=== PATIENT | female | born 1995 | race Caucasian/White ===

== ENCOUNTER 2016-05-18 02:38 | Emergency (ER) | payer BC ==
--- NOTE | 2016-05-18 03:05 | ED ---
Nausea/Vomiting/Diarrhea HPI - General Chief complaint: Nausea/Vomiting/Diarrhea Stated complaint: light headed Time Seen by Provider: 05/18/16 02:50 Source: patient, RN notes reviewed Mode of arrival: ambulatory Limitations: no limitations - History of Present Illness Initial comments: Patient is a 21-year-old female presents to the emergency room for evaluation of nausea, vomiting and lightheadedness. Patient states while she was at work today she began feeling very nauseous and vomited. Patient states that she's been very lightheaded after vomiting. Patient states she thinks she is dehydrated. Patient denies any significant abdominal pain. Patient denies headache. Patient denies ear pain or ringing in the ears. Patient denies throat pain. Patient denies constipation or diarrhea. Patient denies any fevers or chills. Patient denies trying new foods. Patient denies recent travel outside the country. Patient states she can't keep any food down. Patient states she's feeling very nauseous. Patient states she is on control but could possibly be . Patient denies any pain or burning during urination, trouble urinating or blood in urine. - Related Data Previous Rx's Medication Instructions Recorded Ondansetron Odt [Zofran Odt] 4 mg PO Q8HR PRN #12 tab 05/18/16 Allergies Allergy/AdvReac Type Severity Reaction Status Date / Time Penicillins Allergy Rash/Hives Verified 03/01/16 15:11 Review of Systems ROS Statement: Those systems with pertinent positive or pertinent negative responses have been documented in the HPI. ROS Other: All systems not noted in ROS Statement are negative. Past Medical History Past Medical History: No Reported History History of Any Multi-Drug Resistant Organisms: None Reported Past Surgical History: Section Past Psychological History: No Psychological Hx Reported Smoking Status: Current every day smoker Past Alcohol Use History: Occasional Past Drug Use History: None Reported General Exam - General Exam Comments Initial Comments: Laying in exam room, no acute distress. Limitations: no limitations General appearance: alert, in no apparent distress Head exam: Present: atraumatic, normocephalic, normal inspection Eye exam: Present: normal appearance ENT exam: Present: normal exam Neck exam: Present: normal inspection Respiratory exam: Present: normal lung sounds bilaterally. Absent: respiratory distress Cardiovascular Exam: Present: normal rhythm, tachycardia, normal heart sounds GI/Abdominal exam: Present: soft, normal bowel sounds. Absent: distended, tenderness, guarding, rebound, rigid Extremities exam: Present: normal inspection Back exam: Present: normal inspection Neurological exam: Present: alert, oriented X3, CN II-XII intact, normal gait Psychiatric exam: Present: normal affect, normal mood Skin exam: Present: warm, dry, intact, normal color. Absent: rash Course Vital Signs 05/18/16 05/18/16 02:44 04:17 Temperature 98.7 F 98.1 F Pulse Rate 114 H 68 Respiratory 20 18 Rate Blood Pressure 129/77 93/51 O2 Sat by Pulse 97 100 Oximetry Medical Decision Making - Medical Decision Making Patient is a 21-year-old female presents to the emergency room for evaluation of nausea, vomiting and lightheadedness. Patient states she is feeling better after fluids and Zofran given. Labs show no significant findings. WBC within normal limits. Urine contaminated. Patient denies any problems with urination or vaginal discomfort. Urine will be cultured. Patient states she understands everything that was discussed with her. Return parameters discussed. Case discussed with Dr. Welch. - Lab Data Result diagrams: 05/18/16 03:15 05/18/16 03:15 Lab Results 05/18/16 05/18/16 05/18/16 Range/Units 03:15 03:15 03:30 WBC 10.5 (3.8-10.6) k/uL RBC 4.65 (3.80-5.40) m/uL Hgb 14.2 (11.4-16.0) gm/dL Hct 41.3 (34.0-46.0) % MCV 88.8 (80.0-100.0) fL MCH 30.5 (25.0-35.0) pg MCHC 34.3 (31.0-37.0) g/dL RDW 12.9 (11.5-15.5) % Plt Count 284 (150-450) k/uL Neutrophils % 84 % Lymphocytes % 10 % Monocytes % 5 % Eosinophils % 1 % Basophils % 0 % Neutrophils # 8.8 H (1.3-7.7) k/uL Lymphocytes # 1.0 (1.0-4.8) k/uL Monocytes # 0.5 (0-1.0) k/uL Eosinophils # 0.1 (0-0.7) k/uL Basophils # 0.0 (0-0.2) k/uL Sodium 140 (137-145) mmol/L Potassium 3.6 (3.5-5.1) mmol/L Chloride 106 (98-107) mmol/L Carbon Dioxide 23 (22-30) mmol/L Anion Gap 11 mmol/L BUN 13 (7-17) mg/dL Creatinine 0.60 (0.52-1.04) mg/dL Est GFR (MDRD) Af Amer >60 (>60 ml/min/1.73 sqM) Est GFR (MDRD) Non-Af >60 (>60 ml/min/1.73 sqM) Glucose 106 H (74-99) mg/dL Calcium 9.3 (8.4-10.2) mg/dL Total Bilirubin 0.9 (0.2-1.3) mg/dL AST 19 (14-36) U/L ALT 30 (9-52) U/L Alkaline Phosphatase 50 (38-126) U/L Total Protein 7.0 (6.3-8.2) g/dL Albumin 4.4 (3.5-5.0) g/dL Urine Color Urine Appearance (Clear) Urine pH (5.0-8.0) Ur Specific [place] (1.001-1.035) Urine Protein (Negative) Urine Glucose (UA) (Negative) Urine Ketones (Negative) Urine Blood (Negative) Urine Nitrate (Negative) Urine Bilirubin (Negative) Urine Urobilinogen (<2.0) mg/dL Ur Leukocyte Esterase (Negative) Urine RBC (0-5) /hpf Urine WBC (0-5) /hpf Ur Squamous Epith Cells (0-4) /hpf Urine Bacteria (None) /hpf Urine Mucus (None) /hpf Urine HCG, Qual Not Detected (Not Detectd) 05/18/16 Range/Units 03:30 WBC (3.8-10.6) k/uL RBC (3.80-5.40) m/uL Hgb (11.4-16.0) gm/dL Hct (34.0-46.0) % MCV (80.0-100.0) fL MCH (25.0-35.0) pg MCHC (31.0-37.0) g/dL RDW (11.5-15.5) % Plt Count (150-450) k/uL Neutrophils % % Lymphocytes % % Monocytes % % Eosinophils % % Basophils % % Neutrophils # (1.3-7.7) k/uL Lymphocytes # (1.0-4.8) k/uL Monocytes # (0-1.0) k/uL Eosinophils # (0-0.7) k/uL Basophils # (0-0.2) k/uL Sodium (137-145) mmol/L Potassium (3.5-5.1) mmol/L Chloride (98-107) mmol/L Carbon Dioxide (22-30) mmol/L Anion Gap mmol/L BUN (7-17) mg/dL Creatinine (0.52-1.04) mg/dL Est GFR (MDRD) Af Amer (>60 ml/min/1.73 sqM) Est GFR (MDRD) Non-Af (>60 ml/min/1.73 sqM) Glucose (74-99) mg/dL Calcium (8.4-10.2) mg/dL Total Bilirubin (0.2-1.3) mg/dL AST (14-36) U/L ALT (9-52) U/L Alkaline Phosphatase (38-126) U/L Total Protein (6.3-8.2) g/dL Albumin (3.5-5.0) g/dL Urine Color Yellow Urine Appearance Cloudy H (Clear) Urine pH 5.5 (5.0-8.0) Ur Specific [place] 1.023 (1.001-1.035) Urine Protein Trace H (Negative) Urine Glucose (UA) Negative (Negative) Urine Ketones Negative (Negative) Urine Blood Moderate H (Negative) Urine Nitrate Negative (Negative) Urine Bilirubin Negative (Negative) Urine Urobilinogen <2.0 (<2.0) mg/dL Ur Leukocyte Esterase Trace H (Negative) Urine RBC 53 H (0-5) /hpf Urine WBC 21 H (0-5) /hpf Ur Squamous Epith Cells 51 H (0-4) /hpf Urine Bacteria Moderate H (None) /hpf Urine Mucus Rare H (None) /hpf Urine HCG, Qual (Not Detectd) Disposition Clinical Impression: Nausea and vomiting Disposition: HOME SELF-CARE Condition: Good Instructions: Acute Nausea and Vomiting (ED) Additional Instructions: Drink plenty of fluids. Take Zofran as needed for nausea. Please follow up with primary care provider in 1-2 days. If any new symptom arises or symptoms worsen, return to ER as soon as possible. Prescriptions: Ondansetron Odt [Zofran Odt] 4 mg PO Q8HR PRN #12 tab PRN Reason: Nausea Referrals: Shannon Gonzalez MD [Primary Care Provider] - 1-2 days Time of Disposition: 04:03
[2016-05-18] MEDS: ONDANSETRON 4 MG/2 ML VIAL IVP STA (03:17)
[2016-05-18] MEDS: SODIUM CHLORIDE 0.9% 1,000 ML IV ONE (03:19)
[2016-05-18 03:21] LABS: Basophils % (A) 0 %; CH 30.1; CHCM 34.1; Eosinophils # (A) 0.1 k/uL (0-0.7); Eosinophils % (A) 1 %; HCT 41.3 % (34.0-46.0); HDW 2.28; HGB 14.2 gm/dL (11.4-16.0); Luc # (Auto) 0.09; Luc % (Auto) 1; Lymphocytes % (A) 10 %; MCH 30.5 pg (25.0-35.0); MCHC 34.3 g/dL (31.0-37.0); MCV 88.8 fL (80.0-100.0); Mean Platelet Volume 7.5; Monocytes # (A) 0.5 k/uL (0-1.0); Monocytes % (A) 5 %; Neutrophils # (A) 8.8 k/uL (1.3-7.7); Neutrophils % (A) 84 %; RBC 4.65 m/uL (3.80-5.40); RDW 12.9 % (11.5-15.5); WBC 10.5 k/uL (3.8-10.6); WBC (Perox) 10.65
[2016-05-18 03:29] LABS: ALT 30 U/L (9-52); AST 19 U/L (14-36); Alkaline Phosphatase 50 U/L (38-126); Anion Gap 11 mmol/L; Blood Urea Nitrogen 13 mg/dL (7-17); Calcium 9.3 mg/dL (8.4-10.2); Carbon Dioxide 23 mmol/L (22-30); Chloride 106 mmol/L (98-107); Glucose 106 mg/dL (74-99); Non-African American GFR(MDRD) >60 (>60 ml/min/1.73 sqM); Potassium 3.6 mmol/L (3.5-5.1); Sodium 140 mmol/L (137-145); Total Bilirubin 0.9 mg/dL (0.2-1.3)
[2016-05-18 03:41] LABS: Appearance,Urine Cloudy (Clear); Bacteria,Urine Moderate /hpf; Bilirubin,Urine Negative (Negative); Glucose,Urine (UA) Negative (Negative); Ketones,Urine Negative (Negative); Leukocyte Esterase,Urine Trace (Negative); Mucus,Urine Rare /hpf; Nitrite,Urine Negative (Negative); PH, Urine 5.5 (5.0-8.0); Particle Count 16586; Protein,Urine Trace (Negative); RBC,Urine 53 /hpf (0-5); Specific Gravity,Urine 1.023 (1.001-1.035); Squamous Epithelial Cell,Urine 51 /hpf (0-4); UA Billing (MACRO vs. MICRO) MICRO; Urobilinogen,Urine <2.0 mg/dL (<2.0); WBC,Urine 21 /hpf (0-5)
[2016-05-18 04:18] VITALS: BP 93/51; PULSE 68; RESP 18; TEMP 98.1
== END 2016-05-18 04:19 | disposition home or self-care (01) ==
LOC: EC 02:38
DX: R11.2 Nausea with vomiting, unspecified (principal); R42 Dizziness and giddiness; F17.200 Nicotine dependence, unspecified, uncomplicated; Z88.0 Allergy status to penicillin
CPT/HCPCS: 36415; 93005; 80053; 85025; 81001; 81025; 87086; 99284; 96374; 96361; J2405

== ENCOUNTER 2016-08-06 14:32 | Emergency (ER) | payer BC, OTHER ==
[2016-08-06] MEDS ORDERED: IBUPROFEN 800 MG TAB PO STA (14:44)
[2016-08-06] MEDS ORDERED: AZITHROMYCIN 500 MG TAB PO STA (14:57)
--- NOTE | 2016-08-06 15:01 | ED ---
Animal Bite HPI - General Chief Complaint: Animal Bite Stated Complaint: Dog Bite Time Seen by Provider: 08/06/16 14:38 Source: patient Mode of arrival: ambulatory Limitations: no limitations - History of Present Illness Initial Comments: Patient is a 21-year-old left-handed female presenting to the emergency department with complaints of dog bite to left forearm. Patient states she was entering her girlfriends house when her girlfriends dog attacked her and bit her arm. Complaint: animal bite Onset/Timin -: minutes(s) Right: Forearm (1 cm puncture wound to ulnar proximal forearm. 2 cm puncture wound to radial proximal forearm.) Animal: dog Description: household pet, immunizations UTD, appeared well Mechanism: bite Pain Description: sharp, constant Severity scale (1-10): 8 Context: unprovoked Associated Symptoms: erythema Treatments Prior to Arrival: pressure - Related Data Patient Tetanus UTD: Yes Previous Rx's Medication Instructions Recorded Azithromycin [Zithromax] 500 mg PO DAILY #4 tab 08/06/16 Allergies Allergy/AdvReac Type Severity Reaction Status Date / Time Penicillins Allergy Rash/Hives Verified 08/06/16 14:36 Review of Systems ROS Statement: Those systems with pertinent positive or pertinent negative responses have been documented in the HPI. ROS Other: All systems not noted in ROS Statement are negative. Past Medical History Past Medical History: No Reported History History of Any Multi-Drug Resistant Organisms: None Reported Past Surgical History: Section Past Psychological History: No Psychological Hx Reported Smoking Status: Current every day smoker Past Alcohol Use History: Occasional Past Drug Use History: None Reported General Exam Limitations: no limitations General appearance: alert, anxious Head exam: Present: atraumatic, normocephalic, normal inspection Eye exam: Present: normal appearance Neck exam: Present: normal inspection Respiratory exam: Present: normal lung sounds bilaterally. Absent: respiratory distress, wheezes, rales, rhonchi, stridor Cardiovascular Exam: Present: regular rate, normal rhythm, normal heart sounds. Absent: systolic murmur, diastolic murmur, rubs, gallop, clicks GI/Abdominal exam: Present: soft, normal bowel sounds. Absent: distended, tenderness, guarding, rebound, rigid Right Elbow exam: Present: normal inspection, full ROM. Absent: tenderness, swelling Forearm Wrist exam: Present: tenderness, swelling, erythema Hand Wrist exam: Present: normal inspection. Absent: full ROM, tenderness Neuro motor exam: Present: wrist extension intact, thumb opposition intact, thumb IP flexion intact, thumb adduction intact, fingers 2-5 abduction intact Neurosensory exam: Present: 2-point discrimination, radial nerve intact, ulnar nerve intact, median nerve intact Vascular: Present: normal capillary refill, radial pulse, brachial pulse, ulnar pulse. Absent: vascular compromise Neurological exam: Present: alert, oriented X3, normal gait, other (No focal deficits noted) Psychiatric exam: Present: normal affect, normal mood Skin exam: Present: warm, dry, normal color Course Vital Signs 08/06/16 14:34 Temperature 97.8 F Pulse Rate 132 H Respiratory 22 Rate Blood Pressure 158/80 O2 Sat by Pulse 97 Oximetry Procedures - Laceration Laceration #1 Consent Obtained: verbal consent Indication: laceration Site: upper extremity (Right forearm) Size (cm): 2 Description: linear Depth: simple, single layer Anesthetic Used: lidocaine 1% Anesthesia Technique: local infiltration Amount (mls): 1 Pre-repair: wound explored, irrigated extensively, deep structures intact Size of Sutures: 5-0 Number of Sutures: 2 Technique: simple, interrupted Patient Tolerated Procedure: well, no complications Laceration #2 Consent Obtained: verbal consent Indication: laceration Site: upper extremity (Right radial forearm) Size (cm): 1 Description: irregular Anesthetic Used: lidocaine 1% Anesthesia Technique: local infiltration Amount (mls): 1 Pre-repair: wound explored, irrigated extensively, deep structures intact Type of Sutures: nylon Size of Sutures: 5-0 Number of Sutures: 1 Technique: simple, interrupted Patient Tolerated Procedure: well, no complications Medical Decision Making - Medical Decision Making Dog bite to right forearm. X-ray of right forearm negative for fracture or foreign body. Puncture wounds sutured loosely. Patient placed on Zithromax for 5 days and pain medicine. Patient instructed to follow-up for wound care check in 24-48 hours. Patient instructed to return to the emergency department with new worsening symptoms. Patient instructed to return for suture removal in 7-10 days, sooner if signs of infection. Patient agrees with treatment plan. Discharge instructions and return parameters reviewed. Disposition Clinical Impression: Dog bite, Laceration of right forearm without complication Disposition: HOME SELF-CARE Condition: Good Instructions: Animal Bite (ED), Care For Your Stitches (ED), Laceration (ED) Additional Instructions: Finish antibiotics as prescribed. Continue Motrin for pain as needed. Follow- up with primary care physician in 24-48 hours to evaluate wound. Please return to the emergency department with new or worsening symptoms. Please return to the emergency room in 7-10 days to have sutures removed. Please watch for any signs of infection which may include increased pain, swelling, redness, fever or chills. Please return to emergency room for any signs of infection do occur. Please use clean soap and water over the area to prevent scabbing over your stitches. Please leave wound covered for the first 24 hours and then leave wound open to air. Please return to the emergency room for any other concerns. Prescriptions: Azithromycin [Zithromax] 500 mg PO DAILY #4 tab Referrals: Shannon Gonzalez MD [Primary Care Provider] - 1-2 days Joseph Stuart PAC [PHYSICIAN [employer]] - 1-2 days (Follow-up as needed) Time of Disposition: 15:31
--- NOTE | 2016-08-06 15:11 | XR ---
Right forearm HISTORY: Pain, dog bite 2 views of the right forearm There is lucency in the soft tissues compatible with penetrating trauma. No radiopaque foreign body. Bone mineralization, joint spaces and alignment are maintained. There is soft tissue swelling. No per iostitis to suggest osteomyelitis. IMPRESSION: Soft tissue infection, correlate for cellulitis, myositis, follow-up as indicated
[2016-08-06 15:53] VITALS: BP 120/70; PULSE 104; RESP 16; TEMP 98.4
== END 2016-08-06 15:52 | disposition home or self-care (01) ==
LOC: EC 14:32
DX: S51.851A Open bite of right forearm, initial encounter (principal); F17.200 Nicotine dependence, unspecified, uncomplicated; Z88.0 Allergy status to penicillin; W54.0XXA Bitten by dog, initial encounter; Y92.009 Unspecified place in unspecified non-institutional (private) residence as the place of occurrence of the external cause
CPT/HCPCS: 12002; 99283

== ENCOUNTER 2020-12-21 01:47 | Emergency (ER) | payer OTHER ==
[2020-12-21 01:55] VITALS: BP 134/94; PULSE 90; RESP 19; TEMP 98.3
[2020-12-21] MEDS ORDERED: ACETAMINOPHEN TAB 500 MG TAB PO STA (02:13)
[2020-12-21] MEDS ORDERED: predniSONE 20 MG TAB PO STA (02:13)
[2020-12-21] MEDS ORDERED: KETOROLAC 15 MG/ML 1 ML VIAL IM STA (02:13)
--- NOTE | 2020-12-21 02:30 | XR ---
EXAMINATION TYPE: XR chest 1V DATE OF EXAM: 12/21/2020 COMPARISON: 09/06/2013 HISTORY: Chest pain TECHNIQUE: Single view FINDINGS: Heart and mediastinum are normal. Lungs are clear. Diaphragm is normal. Bony thorax is inta ct. IMPRESSION: Normal chest. No change.
--- NOTE | 2020-12-21 02:31 | XR ---
EXAMINATION TYPE: XR shoulder limited LT DATE OF EXAM: 12/21/2020 COMPARISON: NONE HISTORY: Older pain TECHNIQUE: 2 views FINDINGS: I see no fracture nor dislocation. Joint spaces are normal. There are no pathologic calcifi cations. IMPRESSION: Negative left shoulder exam.
--- NOTE | 2020-12-21 02:37 | ED ---
Upper Extremity HPI - General Chief Complaint: Extremity Injury, Upper Stated Complaint: LT shoulder pain Time Seen by Provider: 12/21/20 01:48 Source: patient, RN notes reviewed, old records reviewed Mode of arrival: ambulatory Limitations: no limitations - History of Present Illness Initial Comments: This is a 25-year-old female to the emergency currently. Patient presents today for evaluation regards to left shoulder pain and left upper extremity pain. Pain down left arm. This occurred during sexual course tonight. Patient was doing later Mr. Hazel intercourse without any other significant injury or issue. Patient has no headache chest pain shortness breath or abdominal pain. Patient is worse with movement of left arm MD Complaint: Injury to:: left, shoulder, arm, elbow, forearm, wrist -: hour(s) Other Extremity Injury: Fingers: Left, Hand: Left, Wrist: Left, Elbow: Left, Arm: Left, Shoulder: Left, Forearm: Left Other Injuries: none Handedness: right Place: home Severity scale (1-10): 4 Improves With: none Worsens With: none Context: other (Occurred during sexual intercourse) Associated Symptoms: weakness, numbness Treatments Prior to Arrival: other (none) - Related Data Previous Rx's Medication Instructions Recorded Azithromycin [Zithromax] 500 mg PO DAILY #4 tab 08/06/16 Allergies Allergy/AdvReac Type Severity Reaction Status Date / Time Penicillins Allergy Rash/Hives Verified 12/21/20 01:55 Review of Systems ROS Statement: Those systems with pertinent positive or pertinent negative responses have been documented in the HPI. ROS Other: All systems not noted in ROS Statement are negative. Past Medical History Past Medical History: No Reported History History of Any Multi-Drug Resistant Organisms: None Reported Past Surgical History: Section Past Psychological History: No Psychological Hx Reported Smoking Status: Never smoker Past Alcohol Use History: Occasional Past Drug Use History: None Reported General Exam - General Exam Comments Initial Comments: Decreased range of motion secondary to pain. Patient does have neuropathic pain and tenderness General appearance: alert, in no apparent distress Head exam: Present: atraumatic, normocephalic, normal inspection Eye exam: Present: normal appearance, PERRL, EOMI. Absent: scleral icterus, conjunctival injection, periorbital swelling ENT exam: Present: normal exam, mucous membranes moist Neck exam: Present: normal inspection. Absent: tenderness, meningismus, lymphadenopathy Respiratory exam: Present: normal lung sounds bilaterally. Absent: respiratory distress, wheezes, rales, rhonchi, stridor Cardiovascular Exam: Present: regular rate, normal rhythm, normal heart sounds. Absent: systolic murmur, diastolic murmur, rubs, gallop, clicks GI/Abdominal exam: Present: soft, normal bowel sounds. Absent: distended, tenderness, guarding, rebound, rigid Extremities exam: Present: normal inspection, full ROM, normal capillary refill. Absent: tenderness, pedal edema, joint swelling, calf tenderness Back exam: Present: normal inspection Neurological exam: Present: alert, oriented X3, CN II-XII intact Psychiatric exam: Present: normal affect, normal mood Skin exam: Present: warm, dry, intact, normal color. Absent: rash Course Vital Signs 12/21/20 01:51 Temperature 98.3 F Pulse Rate 90 Respiratory 19 Rate Blood Pressure 134/94 O2 Sat by Pulse 98 Oximetry - Reevaluation(s) Reevaluation #1: 12/21/20 02:46 Medical record is reviewed Reevaluation #2: 12/21/20 02:46 Patient symptoms are improved Reevaluation #3: 12/21/20 02:46 Patient informed results and questions answered Medical Decision Making - Medical Decision Making 25 female left upper extremity paresthesia or nerve injury. Symptoms will improve over the next few days encouraged anti-inflammatories and patient can be discharged home - Radiology Data Radiology results: report reviewed (X-ray left shoulder and chest is negative for acute disease), image reviewed Disposition Clinical Impression: Arm paresthesia, left, Strain of shoulder Disposition: HOME SELF-CARE Condition: Good Instructions (If sedation given, give patient instructions): Paresthesia (ED) Is patient prescribed a controlled substance at d/c from ED?: No Referrals: Shannon Gonzalez MD [Primary Care Provider] - 1-2 days
== END 2020-12-21 03:17 | disposition home or self-care (01) ==
LOC: EC 01:47
DX: S46.912A Strain of unspecified muscle, fascia and tendon at shoulder and upper arm level, left arm, initial encounter (principal); R20.2 Paresthesia of skin; Z88.0 Allergy status to penicillin; X50.0XXA Overexertion from strenuous movement or load, initial encounter; Y93.89 Activity, other specified; Y92.009 Unspecified place in unspecified non-institutional (private) residence as the place of occurrence of the external cause
CPT/HCPCS: 73020; 71045; 99284; 96372; J1885; J7512

== ENCOUNTER 2022-04-01 09:05 | Emergency (ER) | payer OTHER ==
[2022-04-01 09:16] VITALS: TEMP 98.5
[2022-04-01] MEDS ORDERED: PANTOPRAZOLE 40 MG/10 ML VIAL IVP STA (09:29)
[2022-04-01] MEDS ORDERED: DICYCLOMINE 10 MG CAP PO STA (09:29)
[2022-04-01] MEDS ORDERED: SODIUM CHLORIDE 0.9% 1,000 ML IV STA (09:29)
--- NOTE | 2022-04-01 09:33 | ED ---
Abdominal Pain HPI - General Chief Complaint: Abdominal Pain Stated Complaint: L side pain Time Seen by Provider: 04/01/22 09:22 Source: patient, RN notes reviewed, old records reviewed Mode of arrival: ambulatory Limitations: no limitations - History of Present Illness Initial Comments: This is a nontoxic appearing 27-year-old female that presents with intermittent left upper and left lower quadrant abdominal pain for the past 4 days. She states that it was worse this morning. She does have 2-3 episodes of diarrhea a day which is normal for her. Denies any abnormal bleeding. She states that she does have urinary urgency and pressure but denies dysuria. Denies any fevers. No nausea vomiting. History of 5 C-sections. No other surgeries. She does vape daily. MD Complaint: abdominal pain -: days(s) (5) Location: LUQ, LLQ Radiation: none Severity scale (1-10): 4 Quality: sharp Consistency: intermittent Improves With: nothing Worsens With: nothing Associated Symptoms: diarrhea - Related Data Previous Rx's Medication Instructions Recorded Azithromycin [Zithromax] 500 mg PO DAILY #4 tab 08/06/16 Allergies Allergy/AdvReac Type Severity Reaction Status Date / Time Penicillins Allergy Rash/Hives Verified 04/01/22 09:15 Review of Systems ROS Statement: Those systems with pertinent positive or pertinent negative responses have been documented in the HPI. ROS Other: All systems not noted in ROS Statement are negative. Past Medical History Past Medical History: No Reported History History of Any Multi-Drug Resistant Organisms: None Reported Past Surgical History: Section Past Psychological History: No Psychological Hx Reported Smoking Status: Vaper Past Alcohol Use History: Occasional Past Drug Use History: None Reported General Exam Limitations: no limitations General appearance: alert, in no apparent distress Head exam: Present: atraumatic Eye exam: Present: normal appearance. Absent: scleral icterus, conjunctival injection, periorbital swelling ENT exam: Present: normal oropharynx, mucous membranes moist Neck exam: Absent: tenderness, meningismus Respiratory exam: Present: normal lung sounds bilaterally. Absent: respiratory distress, accessory muscle use Cardiovascular Exam: Present: tachycardia GI/Abdominal exam: Present: soft, tenderness (llq). Absent: distended, rigid Extremities exam: Present: normal capillary refill. Absent: pedal edema Back exam: Present: normal inspection. Absent: tenderness, CVA tenderness (R), CVA tenderness (L), paraspinal tenderness, vertebral tenderness, rash noted Neurological exam: Present: alert, oriented X3 Psychiatric exam: Present: normal affect, normal mood Skin exam: Present: warm, dry, normal color. Absent: cyanosis, diaphoretic, petechiae, pallor Course Vital Signs 04/01/22 09:14 Temperature 98.5 F Pulse Rate 106 H Respiratory 20 Rate Blood Pressure 134/87 O2 Sat by Pulse 97 Oximetry - Reevaluation(s) Reevaluation #1: 04/01/22 10:22 She states continues to have the left upper and left lower quadrant sharp pain. Labs unremarkable. CT ordered. Time: 10:22 Medical Decision Making - Medical Decision Making Patient complaining of left upper and left lower quadrant abdominal pain for the past [address] of abdomen and pelvis shows anteverted but retroflexed uterus. Bilateral tubal ligation clips. [id number] cul-de-sac and right adnexal free fluid likely physiologic. Asymmetric fullness of the left renal collecting system no ureteral stone is seen. Mild splenomegaly at 14.9 cm. 1.7 cm dominant follicle or functional cyst left ovary. Labs show mild leukocytosis. Electrolytes are unremarkable. Urinalysis shows moderate blood with 22 RBCs. No evidence of infection. She may have passed a kidney stone which would account for left lower quadrant pain and hematuria. Left upper quadrant pain is likely associated with splenomegaly. She was instructed to follow-up with her primary care doctor for continuation of care and evaluation of splenomegaly. She was instructed to return to the emergency room or concerning symptoms including fevers, increased pain or persistent nausea vomiting. She is agreeable to this plan of care. Case discussed with Dr. Knott. Was pt. sent in by a medical professional or institution? @ -no Did you speak to anyone other than the patient for history? @ -no Did you review nursing and triage notes? @ -yes i agree Were old charts reviewed? @ -no Differential Diagnosis? @ -Differential Abdominal Pain Women: Appendicitis, Cholecystitis, diverticulosis, ischemic bowel, pancreatitis, hepatitis, UTI, gastroenteritis, incarcerated hernia, bowel obstruction, constipation, inflammatory bowel, hepatitis, peptic ulcer disease, splenic infarction, perforated viscus, vulvitis, ovarian torsion, PID, kidney stone, this is not meant to be an all-inclusive list CT interpreted by me (1pt min.)? @ -no U/S interpreted by me (1pt. min.)? @ -[none] What testing was considered but not performed? (CT, X-rays, U/S, labs)? Why? @ no What meds were considered but not given? Why? @ -none Did you discuss the management of the patient with other professionals? @ -no Did you reconcile home meds? @ -no Was smoking cessation discussed for >3mins.? @ -no Was critical care preformed (if so, how long)? @ -no Were there social determinants of health that impacted care today? How? (Homelessness, low income, unemployed, alcoholism, drug addiction, t ransportation, low edu. Level, literacy, decrease access to med. care, retirement, rehab)? @ -no Was there de-escalation of care discussed even if they declined? (Discuss DNR or withdrawal of care, Hospice)? @ -no What co-morbidities impacted this encounter? (DM, HTN, Smoking, COPD, CAD, Cancer, CVA, Hep., AIDS, mental health diagnosis, sleep apnea, morbid obesity)? @ -smoking Was patient admitted / discharged? @ -discharged Undiagnosed new problem with uncertain prognosis? @ -[none] Drug Therapy requiring intensive monitoring for toxicity (Heparin, Nitro, Insulin, Cardizem)? @ -no Were any procedures done? @ -no Diagnosis/symptom? @ -Abdominal pain Acute, or Chronic, or Acute on Chronic? @ -acute Uncomplicated (without systemic symptoms) or Complicated (systemic symptoms)? @ -[default] Side effects of treatment? @ -[none] Exacerbation, Progression, or Severe Exacerbation] @ -[no] Poses a threat to life or bodily function? @ -[no] - Lab Data Result diagrams: 04/01/22 09:46 04/01/22 09:46 Lab Results 04/01/22 04/01/22 04/01/22 Range/Units 09:46 09:46 09:56 WBC 11.7 H (3.8-10.6) k/uL RBC 4.55 (3.80-5.40) m/uL Hgb 13.2 (11.4-16.0) gm/dL Hct 38.5 (34.0-46.0) % MCV 84.7 (80.0-100.0) fL MCH 29.0 (25.0-35.0) pg MCHC 34.2 (31.0-37.0) g/dL RDW 12.7 (11.5-15.5) % Plt Count 444 (150-450) k/uL MPV 7.1 Neutrophils % 87 % Lymphocytes % 9 % Monocytes % 4 % Eosinophils % 0 % Basophils % 0 % Neutrophils # 10.2 H (1.3-7.7) k/uL Lymphocytes # 1.0 (1.0-4.8) k/uL Monocytes # 0.4 (0-1.0) k/uL Eosinophils # 0.0 (0-0.7) k/uL Basophils # 0.0 (0-0.2) k/uL Sodium 140 (137-145) mmol/L Potassium 4.1 (3.5-5.1) mmol/L Chloride 106 (98-107) mmol/L Carbon Dioxide 30 (22-30) mmol/L Anion Gap 4 mmol/L BUN 9 (7-17) mg/dL Creatinine 0.61 (0.52-1.04) mg/dL Est GFR (CKD-EPI)AfAm >90 (>60 ml/min/1.73 sqM) Est GFR (CKD-EPI)NonAf >90 (>60 ml/min/1.73 sqM) Glucose 108 H (74-99) mg/dL Calcium 9.1 (8.4-10.2) mg/dL Total Bilirubin 0.5 (0.2-1.3) mg/dL AST 21 (14-36) U/L ALT 19 (4-34) U/L Alkaline Phosphatase 49 (38-126) U/L Total Protein 7.0 (6.3-8.2) g/dL Albumin 4.3 (3.5-5.0) g/dL Amylase 63 (30-110) U/L Lipase 73 (23-300) U/L Urine Color Light Yellow Urine Appearance Clear (Clear) Urine pH 7.5 (5.0-8.0) Ur Specific Hope 1.006 (1.001-1.035) Urine Protein Negative (Negative) Urine Glucose (UA) Negative (Negative) Urine Ketones Negative (Negative) Urine Blood Moderate H (Negative) Urine Nitrite Negative (Negative) Urine Bilirubin Negative (Negative) Urine Urobilinogen <2.0 (<2.0) mg/dL Ur Leukocyte Esterase Negative (Negative) Urine RBC 22 H (0-5) /hpf Urine WBC 2 (0-5) /hpf Ur Squamous Epith Cells 1 (0-4) /hpf Urine Mucus Rare H (None) /hpf Urine HCG, Qual (Not Detectd) 04/01/22 Range/Units 09:56 WBC (3.8-10.6) k/uL RBC (3.80-5.40) m/uL Hgb (11.4-16.0) gm/dL Hct (34.0-46.0) % MCV (80.0-100.0) fL MCH (25.0-35.0) pg MCHC (31.0-37.0) g/dL RDW (11.5-15.5) % Plt Count (150-450) k/uL MPV Neutrophils % % Lymphocytes % % Monocytes % % Eosinophils % % Basophils % % Neutrophils # (1.3-7.7) k/uL Lymphocytes # (1.0-4.8) k/uL Monocytes # (0-1.0) k/uL Eosinophils # (0-0.7) k/uL Basophils # (0-0.2) k/uL Sodium (137-145) mmol/L Potassium (3.5-5.1) mmol/L Chloride (98-107) mmol/L Carbon Dioxide (22-30) mmol/L Anion Gap mmol/L BUN (7-17) mg/dL Creatinine (0.52-1.04) mg/dL Est GFR (CKD-EPI)AfAm (>60 ml/min/1.73 sqM) Est GFR (CKD-EPI)NonAf (>60 ml/min/1.73 sqM) Glucose (74-99) mg/dL Calcium (8.4-10.2) mg/dL Total Bilirubin (0.2-1.3) mg/dL AST (14-36) U/L ALT (4-34) U/L Alkaline Phosphatase (38-126) U/L Total Protein (6.3-8.2) g/dL Albumin (3.5-5.0) g/dL Amylase (30-110) U/L Lipase (23-300) U/L Urine Color Urine Appearance (Clear) Urine pH (5.0-8.0) Ur Specific Hope (1.001-1.035) Urine Protein (Negative) Urine Glucose (UA) (Negative) Urine Ketones (Negative) Urine Blood (Negative) Urine Nitrite (Negative) Urine Bilirubin (Negative) Urine Urobilinogen (<2.0) mg/dL Ur Leukocyte Esterase (Negative) Urine RBC (0-5) /hpf Urine WBC (0-5) /hpf Ur Squamous Epith Cells (0-4) /hpf Urine Mucus (None) /hpf Urine HCG, Qual Not Detected (Not Detectd) Disposition Clinical Impression: Abdominal pain, Splenomegaly Disposition: HOME SELF-CARE Condition: Good Instructions (If sedation given, give patient instructions): Abdominal Pain (ED) Additional Instructions: Increase your fluid intake. Tylenol and/or Motrin as need for any pain or discomfort. Please follow-up with your primary care doctor regarding your enlarged spleen. Return to the emergency room with any new or concerning symptoms including increased pain, fevers or persistent nausea vomiting. Is patient prescribed a controlled substance at d/c from ED?: No Referrals: Shannon Gonzalez MD [Primary Care Provider] - 1-2 days Time of Disposition: 11:25
[2022-04-01 09:53] LABS: Basophils % (A) 0 %; Eosinophils % (A) 0 %; HCT 38.5 % (34.0-46.0); HGB 13.2 gm/dL (11.4-16.0); Lymphocytes % (A) 9 %; MCHC 34.2 g/dL (31.0-37.0); MCV 84.7 fL (80.0-100.0); Mean Platelet Volume 7.1; Monocytes # (A) 0.4 k/uL (0-1.0); Monocytes % (A) 4 %; Neutrophils # (A) 10.2 k/uL (1.3-7.7); Neutrophils % (A) 87 %; Platelet Count 444 k/uL (150-450); RBC 4.55 m/uL (3.80-5.40); RDW 12.7 % (11.5-15.5); WBC 11.7 k/uL (3.8-10.6)
[2022-04-01 10:06] LABS: ALT 19 U/L (4-34); AST 21 U/L (14-36); African American GFR (CKD) >90 (>60 ml/min/1.73 sqM); Albumin 4.3 g/dL (3.5-5.0); Alkaline Phosphatase 49 U/L (38-126); Amylase 63 U/L (30-110); Anion Gap 4 mmol/L; Blood Urea Nitrogen 9 mg/dL (7-17); Calcium 9.1 mg/dL (8.4-10.2); Carbon Dioxide 30 mmol/L (22-30); Chloride 106 mmol/L (98-107); Glucose 108 mg/dL (74-99); Lipase 73 U/L (23-300); Non-African American GFR(CKD) >90 (>60 ml/min/1.73 sqM); Potassium 4.1 mmol/L (3.5-5.1); Sodium 140 mmol/L (137-145); Total Bilirubin 0.5 mg/dL (0.2-1.3)
[2022-04-01 10:35] LABS: Appearance,Urine Clear (Clear); Bilirubin,Urine Negative (Negative); Blood,Urine Moderate (Negative); Color,Urine Light Yellow; Glucose,Urine (UA) Negative (Negative); Ketones,Urine Negative (Negative); Leukocyte Esterase,Urine Negative (Negative); Mucus,Urine Rare /hpf; Nitrite,Urine Negative (Negative); PH, Urine 7.5 (5.0-8.0); Protein,Urine Negative (Negative); RBC,Urine 22 /hpf (0-5); Specific Gravity,Urine 1.006 (1.001-1.035); Squamous Epithelial Cell,Urine 1 /hpf (0-4); Urobilinogen,Urine <2.0 mg/dL (<2.0); WBC,Urine 2 /hpf (0-5)
--- NOTE | 2022-04-01 11:12 | CT ---
EXAMINATION TYPE: CT abdomen pelvis w con DATE OF EXAM: 04/01/2022 COMPARISON: NONE HISTORY: 27-year-old female LLQ and left upper quadrant pain TECHNIQUE: Contiguous axial scanning of the abdomen and pelvis following administration of 100 ml Iso keenan 300 IV contrast. Delayed images through the kidneys and coronal/sagittal reconstructions perform ed. CT DLP: 1205.2 mGycm Automated exposure control for dose reduction was used. FINDINGS: Heart normal size without pericardial effusion. Lung bases are clear without pleural effusi on. No focal liver lesion or biliary ductal dilatation. Portal venous system is patent. Gallbladder is collapsed. Adrenal glands, right kidney, and pancreas within normal limits. The spleen is mildly enlarged at 14.9 cm on coronal series. There is asymmetric fullness of the left renal collecting system but otherwise symmetric uptake and e xcretion of contrast from both kidneys. No dilated small bowel, free fluid, or free air. No mesenteric or retroperitoneal lymphadenopathy. Mild stool burden. Normal appendix. No pericolonic inflammatory change. Bladder is urine distended. Small pelvic phleboliths. Uterus anteverted but retroflexed. There is mild to moderate cul-de-sac free fluid. Both ovaries are visualized. 1.7 cm dominant follicle or functional cyst left ovary. Follicular change right ovary. Bi lateral tubal ligation clips are present. Mild right adnexal free fluid also present. Suspect a 1.4 c m right-sided cervical nabothian cyst. No pelvic lymphadenopathy seen. Bones: No osseous destructive process. IMPRESSION: 1. ANTEVERTED BUT RETROFLEXED UTERUS. 2. BILATERAL TUBAL LIGATION CLIPS. A 1.7 CM DOMINANT FOLLICLE OR FUNCTIONAL CYST IN THE LEFT OVARY. 3. MILD TO MODERATE CUL-DE-SAC AND RIGHT ADNEXAL FREE FLUID. FINDINGS LIKELY PHYSIOLOGIC. CLINICALLY CORRELATE. 4. ASYMMETRIC FULLNESS OF THE LEFT RENAL COLLECTING SYSTEM. NO URETERAL STONE IS SEEN. PROBABLY TRANS IENT FINDINGS GIVEN OTHERWISE SYMMETRIC UPTAKE AND EXCRETION OF CONTRAST FROM THE KIDNEYS. 5. MILD SPLENOMEGALY AT 14.9 CM. CLINICALLY CORRELATE.
[2022-04-01] MEDS ORDERED: KETOROLAC 15 MG/ML 1 ML VIAL IVP STA (11:16)
[2022-04-01 11:50] VITALS: BP 101/59; PULSE 70; RESP 15
== END 2022-04-01 11:56 | disposition home or self-care (01) ==
LOC: EC 09:05
DX: R10.12 Left upper quadrant pain (principal); R16.1 Splenomegaly, not elsewhere classified; F17.290 Nicotine dependence, other tobacco product, uncomplicated; Z88.0 Allergy status to penicillin
CPT/HCPCS: 36415; 80053; 82150; 83690; 85025; 81001; 81025; 74177; 99284; 96374; 96375; 96361 ×2; J1885; C9113; Q9967